=== PATIENT | male | born 1980 | race Two or more races ===

== ENCOUNTER 2019-04-09 09:20 | Emergency (ER) | payer OTHER | END 2019-04-09 10:29 | disposition home or self-care (01) | LOC: MED 09:20 | DX: S92.812A Other fracture of left foot, initial encounter for closed fracture (principal); X58.XXXA Exposure to other specified factors, initial encounter; Y93.89 Activity, other specified; Y92.89 Other specified places as the place of occurrence of the external cause; Y99.8 Other external cause status | CPT/HCPCS: 73630; 99283; Q0092 ==